=== PATIENT | female | born 1990 | race Caucasian/White ===

== ENCOUNTER → 2016-12-16 | Outpatient (CLI) | payer OTHER | LOC: COL.RAD 07:15 | DX: E34.9 Endocrine disorder, unspecified (principal) ==

== ENCOUNTER 2021-10-29 15:52 | Emergency (ER) | payer BC ==
[~2021-10-29] VITALS: Ht 160 cm; Wt 54.5 kg
[2021-10-29 16:16] VITALS: TEMP 98.3
[2021-10-29] MEDS ORDERED: PREDNISONE20 MG PO (17:34)
[2021-10-29 17:46] VITALS: BP 132/85; PULSE 101
== END 2021-10-29 17:46 | disposition home or self-care (01) ==
LOC: COL.ER 15:52
DX: R22.0 Localized swelling, mass and lump, head (principal)